=== PATIENT | female | born 1995 | race Asian ===

== ENCOUNTER 2017-08-27 10:26 | Emergency (ER) | payer OTHER ==
[2017-08-27 11:22] LABS: BILIRUBIN,URINE NEGATIVE (NEGATIVE)
[2017-08-27 11:31] LABS: UA w/ MICROSCOPIC CHARGE YES
[2017-08-27 11:32] LABS: HCG UR QUAL NEGATIVE
[2017-08-27 11:37] LABS: UR CULTURE IF IND NOT INDICATED; WBC,URINE 0-3 /HPF (0-5)
[2017-08-27] MEDS ORDERED: LIDOCAINE VISCOUS 2% 15 ML UDC MM STA (12:53)
[2017-08-27] MEDS ORDERED: MAG HYDROX/AL HYDROX/SIMETH 30 ML UDC PO STA (12:53)
--- NOTE | 2017-08-27 12:55 | ED Physician Documentation ---
PD HPI ABD PAIN - Stated complaint Stated Complaint: CRAMPING - Chief complaint Chief Complaint: Abd Pain - History obtained from History obtained from: Patient - History of Present Illness Timing - onset: Enter time (0700), Today Timing - duration: Hours Timing - details: Abrupt onset, Still present Quality: Sharp, Pain Location: Epigastric, Periumbilical Radiation: No: Chest, , Lower back, Left flank, Left shoulder, Right flank, Right shoulder, Upper back Improved by: Other (nothing) Worsened by: Palpation Associated symptoms: Nausea, Vomiting. No: Fever, Diarrhea, Constipation, Dysuria, Chest pain, Dizzy Similar symptoms before: Has not had sx before Recently seen: Not recently seen - Additional information Additional information: 22-year-old female was in her usual state of health when she went to bed last night and she awoke at 07 100 this morning with pain in her epigastrium and periumbilical region. She developed some nausea and vomiting associated with this and the pain has not resolved. She has not had this pain previously. She did take some ibuprofen after the pain started. She denies recent use of ibuprofen within the past week. She denies alcohol consumption. She denies any new or different food consumption. She has not had irritation similar to this previously. Review of Systems Constitutional: denies: Fever Eyes: denies: Decreased vision Ears: denies: Ear pain Nose: denies: Congestion Throat: denies: Sore throat Respiratory: denies: Dyspnea, Cough GI: reports: Abdominal Pain, Nausea, Vomiting : denies: Dysuria, Frequency Skin: denies: Rash Musculoskeletal: denies: Neck pain, Back pain PD PAST MEDICAL HISTORY - Allergies Allergies/Adverse Reactions: Allergies Allergy/AdvReac Type Severity Reaction Status Date / Time No Known Drug Allergies Allergy Verified 08/27/17 10:42 PD ED PE NORMAL - Vitals Vital signs reviewed: Yes (normal ) - General General: No acute distress, Well developed/nourished - HEENT HEENT: Atraumatic, PERRL, EOMI - Neck Neck: Supple, no meningeal sign - Cardiac Cardiac: RRR, No murmur - Respiratory Respiratory: No respiratory distress, Clear bilaterally - Abdomen Abdomen: Soft, Other (epigastric and periumbilical tenderness. There is RLQ tenderness that is not reproducible. ) - Back Back: No CVA TTP, No spinal TTP - Derm Derm: Normal color, Warm and dry - Extremities Extremities: No deformity, No edema - Neuro Neuro: No motor deficit, No sensory deficit - Psych Psych: Normal mood, Normal affect Results - Vitals Vitals: Vital Signs - 24 hr 08/27/17 08/27/17 08/27/17 10:38 12:42 14:31 Temperature 36.3 C L 36.3 C L 36.4 C L Heart Rate 89 72 83 Respiratory 18 15 14 Rate Blood Pressure 106/74 122/80 123/70 O2 Saturation 100 100 99 08/27/17 15:41 Temperature 36.0 C L Heart Rate 70 Respiratory 12 Rate Blood Pressure 114/74 O2 Saturation 100 Oxygen O2 Source Room air - Labs Labs: Laboratory Tests 08/27/17 08/27/17 08/27/17 11:14 13:34 13:34 WBC 10.3 RBC 5.07 Hgb 14.1 Hct 41.8 MCV 82.5 MCH 27.9 MCHC 33.8 RDW 13.6 Plt Count 276 MPV 8.3 Neut # 7.1 H Lymph # 2.7 [place] # 0.4 Eos # 0.1 Baso # 0.0 Absolute Nucleated RBC 0.00 Nucleated RBC % 0.0 Sodium 138 Potassium 3.4 L Chloride 104 Carbon Dioxide 25 Anion Gap 9.0 BUN 7 Creatinine 0.4 Estimated GFR (MDRD) 203 Glucose 88 Calcium 9.4 Total Bilirubin 0.5 AST 21 ALT 15 Alkaline Phosphatase 82 Troponin I Total Protein 7.6 Albumin 4.6 Globulin 3.0 Albumin/Globulin Ratio 1.5 Lipase 30 Urine Color YELLOW Urine Clarity HAZY Urine pH 7.0 Ur Specific [place] 1.010 Urine Protein NEGATIVE Urine Glucose (UA) NEGATIVE Urine Ketones NEGATIVE Urine Occult Blood LARGE H Urine Nitrite NEGATIVE Urine Bilirubin NEGATIVE Urine Urobilinogen 0.2 (NORMAL) Ur Leukocyte Esterase NEGATIVE Urine RBC 11-25 H Urine WBC 0-3 Ur Squamous Epith Cells FEW Squamous Amorphous Sediment Moderate Urine Bacteria Few Urine Mucus Few Strands Ur Microscopic Review INDICATED Urine Culture Comments NOT INDICATED Urine HCG, Qual NEGATIVE 08/27/17 13:34 WBC RBC Hgb Hct MCV MCH MCHC RDW Plt Count MPV Neut # Lymph # [place] # Eos # Baso # Absolute Nucleated RBC Nucleated RBC % Sodium Potassium Chloride Carbon Dioxide Anion Gap BUN Creatinine Estimated GFR (MDRD) Glucose Calcium Total Bilirubin AST ALT Alkaline Phosphatase Troponin I < 0.04 Total Protein Albumin Globulin Albumin/Globulin Ratio Lipase Urine Color Urine Clarity Urine pH Ur Specific [place] Urine Protein Urine Glucose (UA) Urine Ketones Urine Occult Blood Urine Nitrite Urine Bilirubin Urine Urobilinogen Ur Leukocyte Esterase Urine RBC Urine WBC Ur Squamous Epith Cells Amorphous Sediment Urine Bacteria Urine Mucus Ur Microscopic Review Urine Culture Comments Urine HCG, Qual - Rads (name of study) Abdomen and pelvis with Radiology: Prelim report reviewed (Impression: 1. Nonspecific pelvic findings as described; recently ruptured ovarian cyst could account for this appearance.2. Otherwise unremarkable. Normal appendix.), EMP read indepedently , See rad report Procedures - Bedside sono Bedside sono by EMP: With use of bedside ultrasound the gallbladder is imaged it is contracted and without evidence of obvious stone it is sonographically nontender. PD MEDICAL DECISION MAKING - ED course Complexity details: reviewed results, re-evaluated patient, considered differential, d/w patient ED course: 22year-old female with acute epigastric pain has pain to palpation in the epigastrium and periumbilical area. She is given a GI cocktail. The GI cocktail did not help much with the pain. A CT scan of the abdomen and pelvis with contrast is obtained and it demonstrates a normal-appearing appendix and there is evidence of a right ovary closely adjacent to the uterus and a small amount of adnexal free fluid consistent with a possible rupture. The patient's pain is some better at the time of conclusion of the visit. Departure - Departure Disposition: 01 Home, Self Care Clinical Impression: Ovarian cyst Qualifiers: Laterality: right Qualified Code(s): N83.201 - Unspecified ovarian cyst, right side Condition: Stable Instructions: ED Cyst Ovarian Follow-Up: BRIANA Dacosta [Provider Group] Comments: For pain today use Tylenol. 650 mg every 6 hours as needed.
[2017-08-27] MEDS ORDERED: LIDOCAINE VISCOUS 2% 15 ML UDC MM ONE (12:59)
[2017-08-27] MEDS ORDERED: MAG HYDROX/AL HYDROX/SIMETH 30 ML UDC ONE (12:59)
[2017-08-27 13:40] LABS: BASOPHILS % (AUTO) 0.3 %; EOSINOPHILS # (AUTO) 0.1 10^3/uL (0.0-0.7); EOSINOPHILS % (AUTO) 0.6 %; HCT - HEMATOCRIT 41.8 % (37.0-47.0); HGB - HEMOGLOBIN 14.1 g/dL (12.0-16.0); LYMPHOCYTES # (AUTO) 2.7 10^3/uL (1.5-3.5); LYMPHOCYTES % (AUTO) 26.1 %; MEAN CORPUSCULAR HEMOGLOBIN 27.9 pg (27.0-31.0); MEAN CORPUSCULAR HGB CONC 33.8 g/dL (32.0-36.0); MEAN CORPUSCULAR VOLUME 82.5 fL (81.0-99.0); MEAN PLATELET VOLUME 8.3 fL (7.9-10.8); MONOCYTES # (AUTO) 0.4 10^3/uL (0.0-1.0); MONOCYTES % (AUTO) 4.1 %; NEUTROPHILS # (AUTO) 7.1 10^3/uL (1.5-6.6); NEUTROPHILS % (AUTO) 68.9 %; RED BLOOD COUNT 5.07 10^6/uL (4.20-5.40); RED CELL DISTRIBUTION WIDTH 13.6 % (12.0-15.0); UNCORRECTED WHITE BLOOD COUNT 10.3 x10^3/uL; WHITE BLOOD COUNT 10.3 x10^3/uL (4.8-10.8)
[2017-08-27 13:51] LABS: ALBUMIN/GLOBULIN RATIO 1.5 (1.0-2.2); BILIRUBIN,TOTAL 0.5 mg/dL (0.2-1.0); CALCIUM 9.4 mg/dL (8.5-10.3); CREATININE 0.4 mg/dL (0.4-1.0); POTASSIUM 3.4 mmol/L (3.5-5.0); TOTAL PROTEIN 7.6 g/dL (6.7-8.2)
[2017-08-27] MEDS ORDERED: IOPAMIDOL-300 100 ML VIAL ONE (13:53)
[2017-08-27] MEDS ORDERED: POTASSIUM BICARB 25 MEQ TABLET PO STA (14:56)
[2017-08-27] MEDS ORDERED: IOPAMIDOL-300 100 ML VIAL IVP ONE (14:57)
[2017-08-27] MEDS ORDERED: POTASSIUM BICARB 25 MEQ TABLET PO ONE (15:06)
--- NOTE | 2017-08-27 15:16 | CT Preliminary Report ---
Exam: CT Abdomen/Pelvis W/ IMPRESSION: 1. Nonspecific pelvic findings as described; recently ruptured ovarian cyst could account for this ap pearance. 2. Otherwise unremarkable. Normal appendix. [facility] SITE ID: [id number]
--- NOTE | 2017-08-27 15:19 | CT Report ---
EXAM: CT ABDOMEN AND PELVIS EXAM DATE: 08/27/2017 03:05 PM. CLINICAL HISTORY: Epigastric and RLQ pain . COMPARISONS: None. TECHNIQUE: Routine helical CT imaging was performed through the abdomen and pelvis. IV contrast: 100 cc Isovue-300. Enteric contrast: No. Reconstructions: Coronal and sagittal. In accordance with CT protocol optimization, one or more of the following dose reduction techniques w ere utilized for this exam: automated exposure control, adjustment of mA and/or KV based on patient s ize, or use of iterative reconstructive technique. FINDINGS: Lung Bases: Unremarkable. Liver: Normal. No masses. Gallbladder/Bile Ducts: Unremarkable. Spleen: Normal. Pancreas: Normal. Adrenal Glands: Normal. Kidneys: Normal. No masses or hydronephrosis. Peritoneal Cavity/Bowel: Normal. No free fluid, free air or adenopathy. No masses or acute inflammato ry process. The appendix is well visualized and normal. Pelvic Organs: Normal urinary bladder. Mildly dextroverted uterus. Unremarkable left ovary. Right ova ry is closely adjacent to the uterus and demonstrates a small to moderate amount of adnexal free flui d tracking in the cul-de-sac, a nonspecific finding. Vasculature: No aneurysms or other significant abnormality. Bones: No significant abnormality. Other: None. IMPRESSION: 1. Nonspecific pelvic findings as described; recently ruptured ovarian cyst could account for this ap pearance. 2. Otherwise unremarkable. Normal appendix. [facility] Referring Provider Line: [phone] SITE ID: [id number]
[2017-08-27 15:42] VITALS: BP 114/74
== END 2017-08-27 16:13 | disposition home or self-care (01) ==
LOC: ED 10:26
DX: N83.201 Unspecified ovarian cyst, right side (principal)
CPT/HCPCS: 36415; 74177; 80053; 81001; 81025; 83690; 84484; 85025; 99283; A9270; Q9967; 81003; 87086

== ENCOUNTER 2018-10-30 16:06 | Emergency (ER) | payer OTHER ==
[2018-10-30] MEDS ORDERED: LOPERAMIDE 2 MG CAPSULE PO STA (16:35)
[2018-10-30] MEDS ORDERED: KETOROLAC 60 MG/2 ML VIAL IVP STA (16:35)
[2018-10-30] MEDS ORDERED: ONDANSETRON 4 MG/2 ML VIAL IVP STA (16:35)
[2018-10-30] MEDS ORDERED: SODIUM CHLORIDE 0.9% 1,000 ML IV ONE (16:35)
--- NOTE | 2018-10-30 16:36 | ED Physician Documentation ---
PD HPI ABD PAIN - Stated complaint Stated Complaint: N/V/D - Chief complaint Chief Complaint: Abd Pain - History obtained from History obtained from: Patient - History of Present Illness Timing - onset: Today (After eating [employer] food around 1 PM she abruptly developed nausea vomiting and diarrhea as well as stomach and. No recent travel. No sick contacts with same. No possibility of .) Review of Systems Constitutional: denies: Fever, Chills Respiratory: denies: Dyspnea, Cough GI: reports: Abdominal Pain, Nausea, Vomiting, Diarrhea. denies: Hematemesis, Bloody / black stool : denies: Dysuria, Frequency PD PAST MEDICAL HISTORY - Present Medications Home Medications: Ambulatory Orders Medication Instructions Recorded Confirmed Ondansetron Odt [Zofran] 4 mg TL Q6H PRN #10 tablet 10/30/18 - Allergies Allergies/Adverse Reactions: Allergies Allergy/AdvReac Type Severity Reaction Status Date / Time No Known Drug Allergies Allergy Verified 10/30/18 16:11 PD ED PE NORMAL - Vitals Vital signs reviewed: Yes - General General: Alert and oriented X 3, No acute distress - Respiratory Respiratory: No respiratory distress, Clear bilaterally - Abdomen Abdomen: Normal bowel sounds, Soft, Non tender - Back Back: No CVA TTP, No spinal TTP - Neuro Neuro: Alert and oriented X 3, Normal speech Results - Vitals Vitals: Vital Signs - 24 hr 10/30/18 10/30/18 16:10 19:08 Temperature 36.5 C Heart Rate 92 74 Respiratory 18 16 Rate Blood Pressure 129/94 H 123/94 H O2 Saturation 100 100 Oxygen O2 Source Room air - Labs Labs: Laboratory Tests 10/30/18 10/30/18 16:58 18:01 Sodium 140 Potassium 3.6 Chloride 106 Carbon Dioxide 27 Anion Gap 7.0 BUN 9 Creatinine 0.4 Estimated GFR (MDRD) 201 Glucose 107 H Calcium 9.0 Total Bilirubin 0.4 AST 15 ALT 11 Alkaline Phosphatase 71 Total Protein 7.6 Albumin 4.4 Globulin 3.2 Albumin/Globulin Ratio 1.4 Lipase 29 Urine Color YELLOW Urine Clarity CLEAR Urine pH 7.5 Ur Specific [place] 1.010 Urine Protein NEGATIVE Urine Glucose (UA) NEGATIVE Urine Ketones NEGATIVE Urine Occult Blood SMALL H Urine Nitrite NEGATIVE Urine Bilirubin NEGATIVE Urine Urobilinogen 0.2 (NORMAL) Ur Leukocyte Esterase NEGATIVE Urine RBC 0-5 Urine WBC 0-3 Ur Squamous Epith Cells NONE SEEN Amorphous Sediment Moderate Urine Bacteria None Seen Ur Microscopic Review INDICATED Urine Culture Comments NOT INDICATED Urine HCG, Qual NEGATIVE PD MEDICAL DECISION MAKING - ED course ED course: 23-year-old woman with history consistent with gastroenteritis. Nontender. Labs unremarkable. After the ministration of IV fluids, Zofran, and Imodium she was symptom-free and passed a p.o. challenge. Departure - Departure Disposition: Home, Self Care Clinical Impression: Gastroenteritis Condition: Good Record reviewed to determine appropriate education?: Yes Instructions: ED Gastroenteritis Viral Prescriptions: Ondansetron Odt [Zofran] 4 mg TL Q6H PRN #10 tablet PRN Reason: Nausea / Vomiting Comments: Return anytime if worse. Tomorrow midday if not completely better. Forms: Activity restrictions
[2018-10-30 17:18] LABS: ALBUMIN 4.4 g/dL (3.2-5.5); ALBUMIN/GLOBULIN RATIO 1.4 (1.0-2.2); BILIRUBIN,TOTAL 0.4 mg/dL (0.2-1.0); CREATININE 0.4 mg/dL (0.4-1.0); TOTAL PROTEIN 7.6 g/dL (6.7-8.2)
[2018-10-30 18:17] LABS: BILIRUBIN,URINE NEGATIVE (NEGATIVE); CLARITY,URINE CLEAR (CLEAR); GLUCOSE, URINE (UA) NEGATIVE (NEGATIVE); KETONES,URINE (UA) NEGATIVE (NEGATIVE); LEUKOCYTE ESTERASE, URINE NEGATIVE (NEGATIVE); NITRITE,URINE NEGATIVE (NEGATIVE); OCCULT BLOOD,URINE SMALL (NEGATIVE); PH,URINE 7.5 PH (5.0-7.5); PROTEIN,URINE NEGATIVE (NEGATIVE); UROBILINOGEN,URINE 0.2 (NORMAL) E.U./dL (NORMAL)
[2018-10-30 18:18] LABS: HCG UR QUAL NEGATIVE
[2018-10-30 18:24] LABS: AMORPHOUS SEDIMENT,UR Moderate /LPF; BACTERIA,URINE None Seen /HPF (None Seen); RBC,URINE 0-5 /HPF (0-5); SQUAMOUS EPITHELIAL CELL,UR NONE SEEN (<= Few)
[2018-10-30 19:38] VITALS: BP 112/90
== END 2018-10-30 19:45 | disposition home or self-care (01) ==
LOC: ED 16:06
DX: K52.9 Noninfective gastroenteritis and colitis, unspecified (principal)
CPT/HCPCS: 36415; 80053; 81001; 81025; 83690; 96361; 96374; 99283; 99284; A9270; 81003; 87086

== ENCOUNTER 2021-07-21 10:30 | Emergency (ER) | payer OTHER ==
[2021-07-21] MEDS ORDERED: PROCHLORPERAZINE 10 MG/2 ML VIAL IVP STA (10:51)
[2021-07-21] MEDS ORDERED: diphenhydrAMINE INJ 50 MG/ML VIAL IVP STA (10:51)
[2021-07-21] MEDS ORDERED: SODIUM CHLORIDE 0.9% 1,000 ML IV STA (10:51)
[2021-07-21] MEDS ORDERED: DEXAMETHASONE 10 MG/ML VIAL IVP STA (10:51)
[2021-07-21] MEDS ORDERED: KETOROLAC 30 MG/ML VIAL IVP STA (10:51)
--- NOTE | 2021-07-21 10:53 | ED Physician Documentation ---
PD HPI HEADACHE - Stated complaint Stated Complaint: HEADACHE - Chief complaint Chief Complaint: Neuro - History obtained from History obtained from: Patient - History of Present Illness Timing - onset: How many days ago (2) Timing - onset during: Rest Timing - duration: Days (2) Timing - details: Abrupt onset, Still present, Waxing and waning Location: Front, Right Quality: Throbbing Associated symptoms: Nausea. No: Fever, Stiff neck, Vomiting, Weakness, Numbness, Syncope, Seizure, Eye pain, Vision changes, Other Improved by: Rest, Dark room, Quiet, Meds Worsened by: Light, Noise, Moving Contributing factors: No: Anticoagulated Similar symptoms before: Diagnosis (complicated migraine) Recently seen: Not recently seen - Additional information Additional information: 26-year-old female with a history of migraine headaches for the past year and a half has developed another migraine headache yesterday she did take some Imitrex for that had some improvement in her nausea and this morning she is awakened again with headache and left arm numbness. She has had this symptoms pr eviously. Review of Systems Constitutional: denies: Fever Eyes: denies: Decreased vision Ears: denies: Ear pain Nose: denies: Rhinorrhea / runny nose, Congestion Throat: denies: Sore throat Cardiac: denies: Chest pain / pressure, Palpitations Respiratory: denies: Dyspnea, Cough GI: reports: Nausea, Vomiting (3 days ago resolved), Diarrhea (3 days ago resolved). denies: Abdominal Pain PD PAST MEDICAL HISTORY - Past Surgical History Past Surgical History: No - Present Medications Home Medications: Ambulatory Orders Medication Instructions Recorded Confirmed Ondansetron Odt [Zofran] 4 mg TL Q6H PRN #10 tablet 10/30/18 07/21/21 SUMAtriptan [Imitrex] 50 mg PO ONCE PRN 07/21/21 07/21/21 - Allergies Allergies/Adverse Reactions: Allergies Allergy/AdvReac Type Severity Reaction Status Date / Time No Known Drug Allergies Allergy Verified 07/21/21 10:36 - Social History Does the pt smoke?: No Smoking Status: Never smoker Does the pt drink ETOH?: Yes Does the pt have substance abuse?: No - Immunizations Immunizations are current?: Yes PD ED PE NORMAL - Vitals Vital signs reviewed: Yes (hypertensive ) - General General: Alert and oriented X 3, No acute distress, Well developed/nourished - HEENT HEENT: Atraumatic, PERRL, EOMI, Other (photophobic ) - Neck Neck: Supple, no meningeal sign, No bony TTP - Cardiac Cardiac: RRR, No murmur - Respiratory Respiratory: No respiratory distress, Clear bilaterally - Abdomen Abdomen: Normal bowel sounds, Soft, Non tender, Non distended, No organomegaly - Back Back: No CVA TTP, No spinal TTP - Derm Derm: Normal color, Warm and dry, No rash - Extremities Extremities: No deformity, No edema - Neuro Neuro: Alert and oriented X 3, supervisor ovens 2-12 intact, No motor deficit, No sensory deficit, Normal speech Eye Opening: Spontaneous Motor: Obeys Commands Verbal: Oriented GCS Score: 15 - Psych Psych: Normal mood, Normal affect Results - Vitals Vitals: Vital Signs - 24 hr 07/21/21 07/21/21 10:34 12:10 Temperature 36.3 C L 36.6 C Heart Rate 70 67 Respiratory 16 16 Rate Blood Pressure 130/95 H 113/83 H O2 Saturation 100 98 Oxygen O2 Source Room air - Labs Labs: Laboratory Tests 07/21/21 07/21/21 11:10 11:10 WBC 5.5 RBC 4.97 Hgb 14.2 Hct 42.2 MCV 84.9 MCH 28.6 MCHC 33.6 RDW 12.4 Plt Count 287 MPV 9.6 Neut # (Auto) 3.4 Lymph # (Auto) 1.7 [place] # (Auto) 0.3 Eos # (Auto) 0.1 Baso # (Auto) 0.0 Absolute Nucleated RBC 0.00 Nucleated RBC % 0.0 Sodium 143 Potassium 4.1 Chloride 106 Carbon Dioxide 27 Anion Gap 10.0 BUN 8 Creatinine 0.4 Estimated GFR (MDRD) 196 Glucose 99 Calcium 9.6 Total Bilirubin 0.8 AST 18 ALT 22 Alkaline Phosphatase 67 Total Protein 7.9 Albumin 4.6 Globulin 3.3 Albumin/Globulin Ratio 1.4 Lipase 25 PD MEDICAL DECISION MAKING - ED course Complexity details: considered differential, d/w patient ED course: 26-year-old female the 3-day history of migraine headache with history of complicated migraine and she has some numbness to her left arm. Today she administered a migraine cocktail consisting of 30 mg Toradol, 10 mg of dexamethasone, 10 mg of Compazine, 25 mg of Benadryl and 1 L of intravenous saline. She has improvement in her headache. Departure - Departure Disposition: 01 Home, Self Care Clinical Impression: Migraine Qualifiers: Migraine type: with aura Status migrainosus presence: without status migrainosus Intractability: not intractable Qualified Code(s): G43.109 - Migraine with aura, not intractable, without status migrainosus Condition: Stable Instructions: ED Headache Migraine Follow-Up: BRIANA Dacosta [Provider Group] Discharge Date/Time: 07/21/21 12:16
[2021-07-21 11:32] LABS: BASOPHILS % (AUTO) 0.4 %; EOSINOPHILS # (AUTO) 0.1 10^3/uL (0.0-0.7); EOSINOPHILS % (AUTO) 1.1 %; HCT - HEMATOCRIT 42.2 % (37.0-47.0); HGB - HEMOGLOBIN 14.2 g/dL (12.0-16.0); LYMPHOCYTES # (AUTO) 1.7 10^3/uL (1.5-3.5); MEAN CORPUSCULAR HEMOGLOBIN 28.6 pg (27.0-31.0); MEAN CORPUSCULAR HGB CONC 33.6 g/dL (32.0-36.0); MEAN CORPUSCULAR VOLUME 84.9 fL (81.0-99.0); MEAN PLATELET VOLUME 9.6 fL (7.9-10.8); MONOCYTES # (AUTO) 0.3 10^3/uL (0.0-1.0); MONOCYTES % (AUTO) 5.9 %; NEUTROPHILS # (AUTO) 3.4 10^3/uL (1.5-6.6); NEUTROPHILS % (AUTO) 61.4 %; PLT - PLATELET COUNT 287 10^3/uL (130-450); RED BLOOD COUNT 4.97 10^6/uL (4.20-5.40); RED CELL DISTRIBUTION WIDTH 12.4 % (12.0-15.0); WHITE BLOOD COUNT 5.5 x10^3/uL (4.8-10.8)
[2021-07-21 11:46] LABS: ALBUMIN 4.6 g/dL (3.2-5.5); ALBUMIN/GLOBULIN RATIO 1.4 (1.0-2.2); BILIRUBIN,TOTAL 0.8 mg/dL (0.2-1.0); CALCIUM 9.6 mg/dL (8.5-10.3); CREATININE 0.4 mg/dL (0.4-1.0); POTASSIUM 4.1 mmol/L (3.5-5.0); TOTAL PROTEIN 7.9 g/dL (6.7-8.2)
[2021-07-21 12:23] VITALS: BP 113/83
== END 2021-07-21 12:16 | disposition home or self-care (01) ==
LOC: ED 10:30
DX: G43.109 Migraine with aura, not intractable, without status migrainosus (principal)
CPT/HCPCS: 36415; 80053; 83690; 85025; 96374; 96375; 99284; 99285; J1200

== ENCOUNTER 2021-07-22 23:55 | Emergency (ER) | payer OTHER ==
--- NOTE | 2021-07-23 00:58 | ED Physician Documentation ---
PD HPI OPHTHO - Stated complaint Stated Complaint: BUMP INSIDE R EYE LID - Chief complaint Chief Complaint: Heent - History obtained from History obtained from: Patient - Additional information Additional information: 26-year-old woman with contact lens use presents with a bump to the right upper eyelid that she noticed yesterday morning and has progressively worsened so that she was unable to sleep tonight. Painful, moderate severity, aching, Constant, localized to the eyelid and nonradiating. Denies vision changes or discharge. Review of Systems Constitutional: denies: Fever, Chills Eyes: reports: Other (eyelid irritation). denies: Loss of vision, Discharge PD PAST MEDICAL HISTORY - Past Medical History Past Medical History: No - Past Surgical History Past Surgical History: No - Present Medications Home Medications: Ambulatory Orders Medication Instructions Recorded Confirmed SUMAtriptan [Imitrex] 50 mg PO ONCE PRN 07/21/21 07/23/21 - Allergies Allergies/Adverse Reactions: Allergies Allergy/AdvReac Type Severity Reaction Status Date / Time No Known Drug Allergies Allergy Verified 07/23/21 00:04 - Social History Does the pt smoke?: No Smoking Status: Never smoker Does the pt drink ETOH?: Yes Does the pt have substance abuse?: No - Immunizations Immunizations are current?: Yes PD ED PE NORMAL - Vitals Vital signs reviewed: Yes - General General: Alert and oriented X 3, No acute distress, Well developed/nourished - HEENT HEENT: Atraumatic, PERRL, EOMI, Other (hordeolum evident to R medial upper eyelid) - Derm Derm: Normal color, Warm and dry Results - Vitals Vitals: Vital Signs - 24 hr 07/23/21 07/23/21 07/23/21 00:01 00:09 01:01 Temperature 36.0 C L 36 C L 36.5 C Heart Rate 79 79 80 Respiratory 14 14 14 Rate Blood Pressure 118/95 H 118/95 H 120/88 H O2 Saturation 98 98 98 Oxygen O2 Source Room air PD MEDICAL DECISION MAKING - ED course ED course: 26-year-old woman presents with hordeolum to right eye. Conservative measures discussed. Patient will follow up with her primary doctor and with ophthalmology as needed. Departure - Departure Disposition: 01 Home, Self Care Clinical Impression: Hordeolum Condition: Good Instructions: ED Hordeolum Comments: You were seen in the emergency department for a stye. Do not wear makeup or contacts while you have this. Apply warm moist compress for 5-10 minutes 5 times daily and wipe and massage gently afterward to aid in drainage. Follow up with ophthalmology in 1 week if you do not have resolution. return to the emergency department if you have any new or worsening symptoms or other concerns. Discharge Date/Time: 07/23/21 01:01
[2021-07-23 01:03] VITALS: BP 120/88
== END 2021-07-23 01:01 | disposition home or self-care (01) ==
LOC: ED 23:55
DX: H00.011 Hordeolum externum right upper eyelid (principal)
CPT/HCPCS: 99281; 99282